=== PATIENT | male | born 2000 | race Caucasian/White ===

== ENCOUNTER 2018-05-06 13:01 | Emergency (ER) | payer SELFPAY ==
[~2018-05-06] VITALS: Ht 165.1 cm; Wt 59.0 kg
[2018-05-06 13:05] VITALS: BP 143/74
== END 2018-05-06 13:38 | disposition left against medical advice (07) ==
LOC: ED 13:32
DX: K62.5 Hemorrhage of anus and rectum (principal); Z53.21 Procedure and treatment not carried out due to patient leaving prior to being seen by health care provider